=== PATIENT | female | born 1995 | race Caucasian/White ===

== ENCOUNTER 2025-07-24 09:04 | Outpatient (CLI) | payer OTHER, SELFPAY ==
--- NOTE | 2025-07-24 09:15 | CRLHL7_ITS ---
For Patients: As a result of the Cures Act, medical imaging exams and procedure reports are released immediately into your electronic medical record. You may view this report before your referring provider. If you have questions, please contact your health care provider. OB ULTRASOUND INDICATION: Dating and viability. TECHNIQUE: Real time yañez scale imaging of the fetus was performed. Transabdominal Transvaginal imaging performed to better evaluate the endometrial structures and ovaries. LMP: 05/19/2025. LINDSEY by LMP: 02/23/2026. GA: 9 w, 3 d. Previous US: No. CRL: 2.6 cm. 9 w 2 d. LINDSEY: 02/24/2026. FHR: 173 BPM. Gestational sac: 4.0 cm. Appears within normal limits. Yolk sac: 3.1 mm. Appears within normal limits. Right ovary: 4.4 x 2.1 x 3.4 cm. CL. Left ovary: 4.5 x 2.0 x 2.8 cm. IMPRESSION: 1. Single living intrauterine measures 9 weeks 2 days with sonographic due date 02/24/2026. 2. Corpus luteal cyst right ovary measures 2.9 cm. Oseas Teran M.D. Diagnostic Radiologist [email or web address] RENATA/[email or web address]/Dictated by: Oseas Teran MD @ 07/24/2025 11:41:00 AM (Electronically Signed)
== END 2025-07-24 09:05 | disposition home or self-care (01) ==
LOC: US 09:04
PROVIDERS: Visit Provider Advanced Practice Midwife
DX: O34.11 Maternal care for benign tumor of corpus uteri, first trimester (principal); N83.11 Corpus luteum cyst of right ovary; Z3A.09 9 weeks gestation of pregnancy
CPT/HCPCS: 76817; 82565; 82570; 83021; 84156; 84450; 84460; 84520; 86592; 86703; 86704; 86706; 86762; 86787; 86803; 86850; 86900; 86901; 87086; 87340

== ENCOUNTER 2025-07-24 10:17 | Outpatient (CLI) | payer OTHER, SELFPAY | END 2025-07-24 10:18 | disposition home or self-care (01) | PROVIDERS: Visit Provider Advanced Practice Midwife | DX: Z34.91 Encounter for supervision of normal pregnancy, unspecified, first trimester (principal); Z3A.09 9 weeks gestation of pregnancy | CPT/HCPCS: 82565; 82570; 83020; 83021; 84156; 84450; 84460; 84520; 85660; 86592; 86703; 86704; 86706; 86762; 86787; 86803; 86850; 86900; 86901; 87086; 87340 ==

== ENCOUNTER 2025-07-25 11:26 | Outpatient (CLI) | payer OTHER, SELFPAY | END 2025-07-25 11:27 | disposition home or self-care (01) | LOC: NFLDREF 07-26 06:09 | PROVIDERS: Visit Provider Advanced Practice Midwife | DX: Z34.91 Encounter for supervision of normal pregnancy, unspecified, first trimester (principal); Z86.79 Personal history of other diseases of the circulatory system | CPT/HCPCS: 82570; 84156 ==

== ENCOUNTER 2025-10-13 11:51 | Outpatient (CLI) | payer OTHER, SELFPAY ==
--- NOTE | 2025-10-13 12:15 | CRLHL7_ITS ---
For Patients: As a result of the Century Cures Act, medical imaging exams and procedure reports are released immediately into your electronic medical record. You may view this report before your referring provider. If you have questions, please contact your health care provider. OB ULTRASOUND SURVEY LMP: 05/19/2025. LINDSEY by LMP: 02/23/2026. GA: 21 w, 0 d. INDICATION: anatomy. TECHNIQUE: Real time grayscale imaging of the fetus was performed. Evaluate anatomy. Transabdominal imaging performed. position: Vertex. Cervix: Visualized. Technique: Transabdominal. Length of closed cervix: 4.0 cm. Placenta/cord: Anterior. Technique: Transabdominal. Placenta tip to internal OS: 8.9 cm. Umbilical Cord: 3-vessel cord. Placenta insertion: Central. Amniotic Fluid: 4.9 cm SDP (greater than/equal to: 2- less than 8 cm). SURVEY: Observed Structures. Calvarium/Spine: Cerebellum: 2.3 cm, 22 w 3 d. Cisterna Magna: 4.3 mm. Nuchal Fold: 3.5 mm. Lateral Ventricle: 5.6 mm. CSP: Yes. Midline Falx: Yes. Choroid Plexus: Yes. Spine: Yes. Abdomen: Stomach: Yes. Abd Cord Insertion: Yes. Urinary Bladder: Yes. Kidneys: Yes. Diaphragm: Yes. Face: Nose/lips: Yes. Orbital view: Yes. Profile: Yes. Limbs: Upper Extremities: Yes. Lower Extremities: Yes. Hands: Yes. Feet: Yes. Vascular: 4-Chamber Heart: Yes. LVOT: Yes. RVOT: Yes. 3VV: Yes. 3VTV: Yes. BPD: 4.9 cm. 20 w, 5 d, 38.8%. HC: 18.4 cm. 20 w, 5 d, 30.8%. AC: 16.3 cm. 21 w, 2 d, 55.1%. FL: 3.4 cm. 20 w, 5 d, 29.9%. FL/AC ratio: 20.88%. HC/AC ratio: 1.13. heart rate: 150 bpm. age by this US: 21 w, 1 d. LINDSEY by this US: 02/22/2026. EFW: 392.79g. Weight: 0 lbs., 14 oz. Percentile by LINDSEY: 45.2%. IMPRESSION: 1. Normal anatomic survey. 2. Concordance of clinical and sonographic dating. Oseas Teran M.D. Diagnostic Radiologist [email or web address] RENATA/[email or web address] [email or web address]/Dictated by: Oseas Teran MD @ 10/13/2025 2:59:00 PM (Electronically Signed)
== END 2025-10-13 11:52 | disposition home or self-care (01) ==
LOC: US 11:51
PROVIDERS: Visit Provider Midwife
DX: Z36.0 Encounter for antenatal screening for chromosomal anomalies (principal); Z34.91 Encounter for supervision of normal pregnancy, unspecified, first trimester; Z3A.21 21 weeks gestation of pregnancy
CPT/HCPCS: 76805